=== PATIENT | male | born 1980 | race Caucasian/White ===

== ENCOUNTER 2020-02-14 13:21 | Inpatient (IN) | payer OTHER ==
[~2020-02-14] VITALS: Ht 182.9 cm; Wt 94.9 kg
[~2020-02-14 13:21] MED LIST: CLARITIN10 MG PO; IBUPROFEN 600600 M1 PO; NORCO 5-325 TA1 EACH PO; PRILOSEC40 MG PO; VENTOLIN HFA 1818 GM INH
[2020-02-14 13:23] VITALS: BP 143/87
[2020-02-14 13:54] LABS: URINE BLOOD TRACE (Negative); URINE CLARITY CLEAR; URINE COLOR YELLOW; URINE GLUCOSE-RANDOM* 2+ (Negative); URINE KETONES 3+ (Negative); URINE LEUKOCYTES-REFLEX NEGATIVE (Negative); URINE NITRITE-REFLEX NEGATIVE (Negative); URINE PROTEIN (DIPSTICK) 1+ (Negative); URINE SPECIFIC GRAVITY 1.025 (1.005-1.035); URINE UROBILINOGEN 0.2 E.U./dl (0.2-1.0)
[2020-02-14 13:57] LABS: ICTOTEST (BILI CONFIRMATORY) Negative (Negative); URINE BILIRUBIN NEGATIVE (Negative)
[2020-02-14 14:14] LABS: MUCUS >6 Heavy strn/LPF (None Seen); SQUAMOUS 0-3 Few /LPF (0-3)
[2020-02-14 14:15] LABS: BACTERIA-REFLEX None Seen /HPF (None Seen); CASTS None Seen /LPF (None Seen); CRYSTALS None Seen /LPF (None Seen); URINE RBC 0-2 Rare /HPF (0-2); URINE WBC-REFLEX 0-5 Rare /HPF (0-5)
[2020-02-14 14:16] LABS: HEMATOCRIT 43.2 % (42.0-52.0); HEMOGLOBIN 15.3 gm/dL (14.0-18.0); MCH 32.7 pg (26.0-34.0); MCHC 35.3 g/dL (28.0-37.0); MCV 92.5 fL (80.0-100.0); PLATELET COUNT 254 thou/uL (150-400); RBC 4.67 mil/uL (4.50-6.00); RDW 13.6 % (10.5-14.5); WBC 20.3 thou/uL (4.0-11.0)
[2020-02-14 14:26] LABS: POTASSIUM 4.1 mmol/L (3.5-5.1)
[2020-02-14 14:47] LABS: ABSOLUTE NEUTROPHILS 16.8 thou/uL (1.4-8.2)
[2020-02-14 14:48] LABS: PLATELET ESTIMATE NORMAL
[2020-02-14 15:25] LABS: CALCIUM 9.7 mg/dL (8.5-10.1); CREATININE 0.8 mg/dL (0.7-1.3); TOTAL BILIRUBIN 1.2 mg/dL (<0.1-1.0); TOTAL PROTEIN 7.2 g/dL (6.4-8.2)
[2020-02-14 15:26] LABS: ALBUMIN 4.2 g/dL (3.4-5.0)
[2020-02-14 16:57] VITALS: BP 123/77
[2020-02-14 17:09] VITALS: BP 114/72
[2020-02-14 18:25] VITALS: BP 137/94
--- NOTE | 2020-02-14 18:49 | NUR ---
39 YO MALE ADMITTED TO 207 BY CART FROM ED C/O RLQ PAIN. A&OX4. AMBULATES KOBI AND IS STEADY ON HIS FEET. IV INTACT IN L AC INFUSING NS@100 AND LOADING DOSE OF PROTONIX. MAY HAVE ICE CHIPS THOUGH IS NPO AT MN. CALL LIGHT W/I REACH.
[2020-02-14 20:08] VITALS: BP 120/86
[2020-02-15] VITALS (7 sets, daily range): BP systolic 119–144; BP diastolic 77–899
[2020-02-15 03:07] LABS: GLYCOHEMOGLOBIN (HGB A1C) 9.4 % (4.8-5.6)
--- NOTE | 2020-02-15 03:49 | NUR ---
ASSESSMENT DOCUMENTED.PT BEEN RESTING IN NO ACUTE DISTRESS.A/OX4.VSS.C/O PAIN TO RLQ THAT IS CONTROLLED WITH PAIN MEDS PER ORDER.IVF INFUSING.ON PROTONIX DRIP.C/O NAUSEA THAT RESOLVES W/O MEDS.NPO W/OPTION OF ICECHIPS,TOLERATED.ON ANTIBIOTICS,TOLERATED.SINUS TACHY ON MONITOR.UP AD MAGDALENE TO BR.PT DENIES ANY NEEDS AT THIS TIME.WILL CONT TO MONITOR PER POC.
[2020-02-15 05:54] LABS: HEMATOCRIT 36.8 % (42.0-52.0); MCH 32.2 pg (26.0-34.0); MCHC 34.4 g/dL (28.0-37.0); MCV 93.6 fL (80.0-100.0); PLATELET COUNT 188 thou/uL (150-400); RBC 3.93 mil/uL (4.50-6.00); RDW 13.5 % (10.5-14.5); WBC 18.9 thou/uL (4.0-11.0)
[2020-02-15 05:56] LABS: HEMOGLOBIN 12.7 gm/dL (14.0-18.0)
[2020-02-15 06:12] LABS: CREATININE 0.8 mg/dL (0.7-1.3); POTASSIUM 3.8 mmol/L (3.5-5.1)
[2020-02-15 11:42] LABS: ABSOLUTE NEUTROPHILS 17.2 thou/uL (1.4-8.2); ANISOCYTOSIS SLIGHT
--- NOTE | 2020-02-15 14:00 | NUR ---
Assumed pt care at 7am.Pt in and out of bed to bathroom and radiology dept. 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 tach
--- NOTE | 2020-02-15 16:11 | NUR ---
Patient admits with abd pain, sp with patient via phone. Patient cont to work and employment aware of hospital stay and he has adequate time off work. Patient with no PCP encouraged to seek PCP prior to dc. Patient does not live alone, independent with all adls aircraft captain. Discussed ETOH use and consumption. Does not feel problem with ETOH and not receptive to resources at this time. Casemgt cont to follow for dc planning.
[2020-02-15 16:19] LABS: FOLIC ACID 3.1 ng/mL (8.6-58.9)
[2020-02-15 20:27] LABS: URINE BILIRUBIN NEGATIVE (Negative); URINE BLOOD TRACE (Negative); URINE CLARITY CLEAR; URINE COLOR YELLOW; URINE GLUCOSE-RANDOM* NEGATIVE (Negative); URINE KETONES 2+ (Negative); URINE LEUKOCYTES NEGATIVE (Negative); URINE NITRITE NEGATIVE (Negative); URINE PROTEIN (DIPSTICK) 1+ (Negative); URINE UROBILINOGEN 0.2 E.U./dl (0.2-1.0)
[2020-02-15 20:35] LABS: AMP/METHAMP Negative (Negative); BARBITURATES Negative (Negative); BENZODIAZEPINES Negative (Negative); COCAINE Negative (Negative); METHADONE Negative (Negative); OPIATES POSITIVE (Negative); PCP Negative (Negative)
[2020-02-15 21:09] LABS: SQUAMOUS 4-10 Moderate /LPF (0-3)
[2020-02-15 21:10] LABS: BACTERIA None Seen /HPF (None Seen); CASTS None Seen /LPF (None Seen); CRYSTALS None Seen /LPF (None Seen); MUCUS 0-3 Light strn/LPF (None Seen); URINE RBC 0-2 Rare /HPF (0-2); URINE WBC 0-5 Rare /HPF (0-5)
--- NOTE | 2020-02-16 02:44 | NUR ---
PT ARRIVED FROM AT ABOUT 23OO HRS, HE IS VERY PLEASNT. BEEN UP AD MAGDALENE IN [place],. PT WAS DRINKING WATER OKAY PRIOR WITH NO C/O NAUSEA OR VOMITING. PT BEEN NPO SINCE MIDNIGHT WITH PLANS FOR EGD TOMORROW.AFEBRILE. IVF INFUSING. AFEBRILE. DENIES SOA OR COUGH. NO CONCERNS AT THIS TIME.CALLS APPROPRITELY.
[2020-02-16 03:44] VITALS: BP 150/93
[2020-02-16 05:56] LABS: BASOPHILS 0.5 % (0.0-2.0); HEMOGLOBIN 12.1 gm/dL (14.0-18.0); POLYS 78.9 % (36.0-66.0)
[2020-02-16 05:59] LABS: ABSOLUTE NEUTROPHILS 12.3 thou/uL (1.4-8.2); EOSINOPHILS 1.1 % (0.0-3.0); HEMATOCRIT 35.1 % (42.0-52.0); LYMPHOCYTES 11.9 % (24.0-44.0); MCH 32.4 pg (26.0-34.0); MCHC 34.5 g/dL (28.0-37.0); MCV 93.7 fL (80.0-100.0); MONOCYTES 7.6 % (1.0-8.0); PLATELET COUNT 183 thou/uL (150-400); RBC 3.74 mil/uL (4.50-6.00); RDW 13.5 % (10.5-14.5); WBC 15.6 thou/uL (4.0-11.0)
[2020-02-16 06:17] LABS: ALBUMIN 2.8 g/dL (3.4-5.0); CALCIUM 8.4 mg/dL (8.5-10.1); CREATININE 0.7 mg/dL (0.7-1.3); MAGNESIUM 1.9 mg/dL (1.8-2.4); PHOSPHORUS 1.9 mg/dL (2.5-4.9); POTASSIUM 3.1 mmol/L (3.5-5.1); TOTAL BILIRUBIN 0.9 mg/dL (<0.1-1.0)
[2020-02-16 08:02] VITALS: BP 152/94
[2020-02-16 13:37] LABS: CHOLESTEROL 276 mg/dL (<200); HDL CHOLESTEROL 13 mg/dL (>40); TC:HDL 21.2 Ratio (Not establshd); TRIGLYCERIDE 790 mg/dL (<150); VLDL 158 mg/dL (<40)
--- NOTE | 2020-02-16 14:11 | P ---
[facility] [place] [address] PROCEDURE REPORT Name: BRYANGEN CECY Room #: 441-P ADM IN M.R.#: [id number] Admission: 02/14/20 Attend Phys: Geraldine Odonnell MD Discharge: Date of : 80 Report #: [id number] THIS REPORT FOR: cc: FAM - No family physician/PCP FAM - Family physician unknown Shon Varela MD ~ CC: Geraldine ROSE physician/PCP FAM unknown Nir Mishra DATE OF SERVICE: 02/16/2020 PROCEDURE PERFORMED: Upper endoscopy with biopsies. HISTORY OF PRESENT ILLNESS: The patient is a 39-year-old male with abdominal pain. CT scan of the abdomen and pelvis on admission showed possible duodenitis versus pancreatitis changes; however, his lipase has remained normal. No previous history of pancreatic abnormalities. He does consume alcohol on a moderate basis. Gallbladder and bile ducts were normal. Liver function tests are essentially normal. He does have a history of heartburn, takes omeprazole approximately 2 times per week at home. Denies any dysphagia. No nausea or vomiting currently. Diabetes is a new diagnosis on this admission as well. He was also admitted with fever and elevated white count. He has been on antibiotics. His white count has been trending down. He remains afebrile at this time. Plan is for EGD. DESCRIPTION OF PROCEDURE: The risks and benefits of the procedure were explained to the patient, those risks including but not limited to bleeding, perforation and the risk of sedation. He understood these risks and gave informed consent. Sedation was given using propofol per anesthesia. Next, using a standard Olympus upper endoscope, the scope was placed in the patient's mouth and advanced under direct vision through the esophagus, stomach and into the second portion of the duodenum. The larynx was normal in appearance. The upper and mid esophagus was normal. In the distal esophagus, severe grade D erosive esophagitis was noted. No evidence of bleeding. Upon entering the stomach, a medium-sized hiatal hernia was noted. Overall, the gastric mucosa was normal. Biopsies were obtained to rule out H. pylori. The pylorus was normal and patent. The duodenal bulb, first and second portion were all normal. No duodenitis or duodenal ulcers were noted. The scope was then withdrawn and the procedure terminated. The patient tolerated the procedure well. IMPRESSION: 1. Grade D erosive esophagitis. [address] [address] PROCEDURE REPORT Name: GEN ADAMS Room #: 441-P [facility] IN .R.#: [id number] Admission: 02/14/20 Attend Phys: Geraldine Odonnell MD Discharge: Date of : 80 Report #: [id number] 2. Hiatal hernia. 3. Otherwise, normal upper endoscopy. RECOMMENDATIONS: 1. Await biopsy results. 2. Recommend b.i.d. PPI therapy and liquid Carafate for the next 2 weeks, followed by daily PPI therapy indefinitely. 3. Repeat upper endoscopy in 8 weeks to rule out the possibility of Lemus's esophagus. 4. Etiology of abdominal pain is unclear, although the patient has grade D erosive esophagitis, changes on CT suggest the possibility of pancreatitis; however, his lipase remains normal. At this time, we will slowly advance diet. Constipation may be playing a role as well at this time as he is having low abdominal pain and has not had a bowel movement for several days. We will also start MiraLax at this time. We will also check a chest x-ray. Continue IV antibiotics at this time. Thank you for allowing me to participate in his care. <ELECTRONICALLY SIGNED> By: Shon Varela MD 02/16/20 1411 1006 [id number] Shon Varela MD /nt
[2020-02-16 16:54] VITALS: BP 136/86
--- NOTE | 2020-02-16 18:37 | NUR ---
Assumed pt care at 7am.Pt in bed anxiously waiting for egd scheduled for today.Assessment completed.vss.Received call from pacu and updates given. Pt left bed cart around 9am and returned at 1130 in stable condition.Per gi lab report,gastritis was found on pt esophagus.Pt resumed previous diet and new meds noted.Updates given to pt girl friend.Pt has been drinking and eating good,and voiding okay.Ivf dc'd.Will continue to monitor.
[2020-02-16 19:35] VITALS: BP 148/100
[2020-02-17 04:23] VITALS: BP 144/94
--- NOTE | 2020-02-17 05:48 | NUR ---
Assumed pt care at 1900. A/OX4. Up ad jean claude. C/o RLQ pain medecited per EMAR with relief reported. No N/V reported, drinking enough oral fluids IV fluids discontinued. K+ 3.1, replaced X1, awaiting recheck this morning. BP a little elevated, pt declines need for meds and stated he must have been startled when woken up to check it, will continue to monitor pt. Call light/personal items within reach.
[2020-02-17 06:11] LABS: CALCIUM 8.9 mg/dL (8.5-10.1); CREATININE 0.7 mg/dL (0.7-1.3); PHOSPHORUS 2.4 mg/dL (2.5-4.9); POTASSIUM 3.4 mmol/L (3.5-5.1)
[2020-02-17 07:20] VITALS: BP 143/91
--- NOTE | 2020-02-17 10:19 | HC ---
[facility] [place] [address] CONSULTATION Name: GEN ADAMS CECY Room #: 441-P ADM IN M.R.#: [id number] Admission: 02/14/20 Attend Phys: Geraldine Odonnell MD Discharge: Date of : 80 Report #: [id number] THIS REPORT FOR: cc: ROSE - No family physician/PCP FAM - Family physician unknown Wenceslao Clements MD ~ CC: Geraldine ROSE physician/PCP FAM unknown Nir Mishra DATE OF SERVICE: 02/16/2020 CONSULTING PHYSICIAN: Dr. Awad. REASON FOR CONSULTATION: Uncontrolled type 2 diabetes mellitus. HISTORY OF PRESENT ILLNESS: This is a 39-year-old male patient whose medical background is rather unremarkable. The patient presented to the ER on the day of admission with complaints of abdominal pain, discomfort, which prompted an admission for further evaluation and management. Again, the patient does not have any significant medical background and is not on chronic medications of any sort. He has never been diagnosed in the past to have type 2 diabetes mellitus and denies having experienced symptoms of polyuria, nocturia, excessive thirst or significant weight changes. Of note is that he does have a family history of type 2 diabetes mellitus involving his grandfather. The patient does not have routine physical exams. REVIEW OF SYSTEMS: CONSTITUTIONAL: Negative for fatigue, tiredness, fever, chills or body weight changes. HEENT: Negative for sore throat, sinus pain, ear drainage. PULMONARY: Negative for shortness of breath, cough or hemoptysis. CARDIAC: Negative for chest pain, palpitations, syncope or presyncope. GASTROINTESTINAL: Noted for abdominal discomfort, nausea, but no vomiting, no major changes in bowel movement frequency. NEUROLOGY: Negative for loss of consciousness, seizure activity, severe frequent headaches or peripheral numbness. PSYCHIATRIC: Negative for delusions or hallucinations. DERMATOLOGY: Negative for ulcerations, rash, discoloration or other major changes. Otherwise, review of systems noncontributory other than those mentioned in HPI. PAST MEDICAL HISTORY: None. [facility] [address] [place] [address] CONSULTATION Name: BRYANGEN Room #: 441-P [facility] IN M.R.#: [id number] Admission: 02/14/20 Attend Phys: Geraldine Odonnell MD Discharge: Date of : 80 Report #: [id number] OUTPATIENT MEDICATIONS: None. ALLERGIES: No known drug allergies. FAMILY HISTORY: Mainly noted for his grandfather having hypertension, type 2 diabetes mellitus and coronary artery disease. SOCIAL HISTORY: The patient is in a long-term relationship expecting his first child soon. Smokes half pack per day. Drinks 2-3 whiskey shots a few times a week. Denies use of illicit drugs. Works in a [employer]. PHYSICAL EXAMINATION: GENERAL: Pleasant male patient who is not in apparent distress, sitting upright in bed, seems fairly comfortable. VITAL SIGNS: Blood pressure is 152/94 mmHg, heart rate is 103 beats per minute, respirations 17 per minute, temperature 36.9 degrees. CONSTITUTIONAL: The patient is sitting upright, appears comfortable, not in apparent distress. HEENT: Anicteric sclerae. Intact extraocular motions. NECK: Supple, without JVD. No thyromegaly. CHEST: Noted for good air entry bilaterally without wheeze or crackles. HEART: Regular rate and rhythm without murmurs or gallops. ABDOMEN: Soft and lax with slight discomfort on deep palpation, especially over the right aspect of the abdomen, but without guarding. The patient has active bowel sounds. EXTREMITIES: Lower extremity exam is negative for ankle edema, skin breaks or ulcerations. Pedal pulses are appreciated. NEUROLOGIC: Awake, alert and oriented to time, place and person. The remainder of his examination is nonfocal. PSYCHIATRIC: Pleasant, interactive. Normal thought process. Normal mood and affect. LABORATORY DATA: Blood glucose on arrival was 227 and has since settled below 180 mg/dL. Sodium 135, potassium 3.1, chloride 99, CO2 of 23, anion gap 13, BUN 6, creatinine 0.7, glucose 143, AST 19, lipase 85, total bilirubin 0.9, calcium 8.4, phosphorus 1.9, magnesium 1.9, alkaline phosphatase 89, ALT 23, total protein 7.0, albumin 2.8, EGFR 126. Ammonia 26. Lactic acid 1.3. Free T4 0.9. White blood count 15.6, hemoglobin 12.1, hematocrit 35.1, platelets 183. TSH 1.094. Hemoglobin A1c 9.4. ASSESSMENT AND PLAN: 1. Type 2 diabetes mellitus. As noted above, the patient has not been diagnosed with diabetes mellitus in the past, but on presentation was documented as having individual blood glucose values as well as a hemoglobin A1c that are well within diabetic range. This constitutes a new diagnosis of type 2 diabetes mellitus. The patient was counseled at length about the pathogenesis of type 2 [facility] [address] [address] CONSULTATION Name: GEN ADAMS Room #: 441-P [facility] IN M.R.#: [id number] Admission: 02/14/20 Attend Phys: Geraldine Odonnell MD Discharge: Date of : 80 Report #: [id number] diabetes mellitus, its implications, and about the necessity of achieving and maintaining adequate glycemic control so as to avoid diabetic complications in the future. I counseled the patient extensively about the importance of effective lifestyle measures involving diet and exercise changes aiming towards weight loss and sustained glycemic control, which he seemed motivated to do. Given the patient's baseline hemoglobin A1c of 9.4%, he will be best suited for a fixed dose combination agent and specifically I will start him on Janumet XR 50-1000 mg p.o. b.i.d. Also, I advised that he initiates blood glucose monitoring at home at least a few times a week and that he follows up in 3 months to monitor his progress and adjust his therapy as needed. 1. Hypertension. The patient has had a few blood pressure values that are in the hypertensive range. I highlighted the importance of maintaining adequate blood pressure control in the setting of type 2 diabetes mellitus. In order to better assess the patient's therapeutic needs, I will order a urine microalbumin to creatinine ratio. 2. Hyperlipidemia in the setting of a new diagnosis of type 2 diabetes mellitus, it would be prudent to adequately control the patient's lipid parameters. I will check a lipid panel to better assess his therapeutic needs in this regards. I certainly appreciate this consultation by Dr. Awad. <ELECTRONICALLY SIGNED> By: Wenceslao Clements MD 02/17/20 1019 1312 [id number] Wenceslao Clements MD /nt
[2020-02-17 12:07] LABS: CREATININE (ALB/CR) 60.6 mg/dL (Not Estab.); MICROALBUMIN-RND URINE 16.8 ug/mL (Not Estab.)
--- NOTE | 2020-02-17 15:21 | NUR ---
PT HAD EGD YESTERDAY. PT ON MIRALAX AND HAD DIET ADVANCED. PT IS NEWLY DIAGNOSED DIABETIC. PT HAS INSURANCE AND SHOULD BE ABLE TO GET ANY NEEDED SUPPLIES AND MEDICATIONS UPON DC. NO NEEDS ANTICPATED UPON DC. CM ABLE TO FOLLOW SHOULD ANY NEEDS ARISE.
[2020-02-17 16:04] VITALS: BP 135/88
[2020-02-17 19:03] VITALS: BP 132/95
--- NOTE | 2020-02-17 19:14 | NUR ---
VSS-AFEBRILE. LUNGS CLEAR-ROOM AIR. DRAIN PRESENT RIGHT LOWER ABDOMEN. DRAINS BEIGE COLORED DRAINAGE WITH FOUL SMELL. TUBING FLUSHES EASILY. OOB MAGDALENE-STEADY ON FEET. CALLS APPROPRIATELY FOR ANY NEEDED ASSISTANCE.
[2020-02-18 05:00] VITALS: BP 149/104
--- NOTE | 2020-02-18 05:06 | NUR ---
Assumed pt care at 1900. A/OX4,up ad jean claude w/o problems. C/o RLQ pain,medicated per EMAR with relief reported. No N/V,reports BM yesterday. Pt looking forward to dc today. Calls approp for help. Will continue to monitor pt.
[2020-02-18 05:52] LABS: HEMATOCRIT 36.8 % (42.0-52.0); HEMOGLOBIN 12.8 gm/dL (14.0-18.0); MCH 32.5 pg (26.0-34.0); MCHC 34.8 g/dL (28.0-37.0); MCV 93.5 fL (80.0-100.0); RBC 3.94 mil/uL (4.50-6.00); RDW 13.6 % (10.5-14.5); WBC 8.4 thou/uL (4.0-11.0)
[2020-02-18 06:05] LABS: CREATININE 0.7 mg/dL (0.7-1.3); MAGNESIUM 2.1 mg/dL (1.8-2.4); PHOSPHORUS 3.3 mg/dL (2.5-4.9); POTASSIUM 3.3 mmol/L (3.5-5.1)
[2020-02-18 07:56] VITALS: BP 151/99
--- NOTE | 2020-02-18 11:18 | NUR ---
Assumed care of pt at 0700. Pt a&ox4. Denies pain. IV antibiotics infusing. Up ad jean claude. Pt will be discharging home.
[2020-02-18] MEDS ORDERED: PANTOPRAZOLE SO40 M1 PO (11:47)
[2020-02-18] MEDS ORDERED: PERCOCET 5-3251 EACH PO (11:47)
[2020-02-18] MEDS ORDERED: TRADJENTA5 MG PO (11:47)
[2020-02-18] MEDS ORDERED: FLAGYL500 M1 PO (11:47)
[2020-02-18] MEDS ORDERED: CARAFATE 11 GM/10 M1 PO (11:47)
[2020-02-18] MEDS ORDERED: FENOFIBRATE54 MG PO (11:47)
[2020-02-18] MEDS ORDERED: CEFUROXIME500 MG PO (11:47)
[2020-02-18 11:59] VITALS: BP 151/99
--- NOTE | 2020-02-18 14:07 | PATH ---
[facility] [address] [place] [address] PATHOLOGY RPT PROCEDURE Name: SASCHA ADAMS Room #: 441-P ADM IN M.R.#: [id number] Admission: 02/14/20 Date of : 80 Discharge: Report #: [id number] Path Case #: [id number] [facility] Accession Number: [id number] . 01 Material submitted: . stomach - GASTRIC BIOPSY TO RULE OUT H PYLORI . 01 Clinical history: . Abnormal CT scan rule out H. pylori . 02 Diagnosis: Stomach "gastric" endoscopic biopsy: - Gastric antral and oxyntic mucosa without significant pathologic alteration. - Negative for active inflammation, intestinal metaplasia, dysplasia and malignancy. - NEGATIVE for Helicobacter pylori. (MACIEJ:sabi; 02/17/2020) MBR 02/18/2020 0822 Local . 02 Electronically signed: . Gaby Guaman MD, Pathologist NPI- [id number] . 01 Gross description: . The specimen is received in formalin, labeled "Sascha Adams, gastric BX" and consists of 2 fragments of pink-ybarra tissue measuring between 0.2 x 0.2 cm and 0.7 x 0.3 cm which are entirely submitted in A1. (SDY; 02/16/2020) SYU/SYU 02/16/2020 1522 Local . 02 Microscopic: . Immunohistochemical stain result: . Helicobacter pylori - negative for organisms. . (MLK:sabi; 02/17/2020) . 02 Pathologist provided ICD-10: R93.3 . 02 CPT . 422118, [id number] Specimen Comment: A courtesy copy of this report has been sent to [phone] Specimen Comment: Report sent to Specimen Comment: A duplicate report has been generated due to demographic updates. [address] [address] PATHOLOGY RPT PROCEDURE Name: BRYANSASCHA Room #: 441-P ADM IN M.R.#: [id number] Admission: 02/14/20 Date of : 80 Discharge: Report #: [id number] Path Case #: [id number] Performed at: 01 [facility] [address] [id number] MD Asael Ceron MD Phone: [phone] Performed at: 02 [facility] [id number] MD Myles Mireles MD Phone: [phone]
== END 2020-02-18 14:54 | disposition home or self-care (01) | DRG 380 ==
LOC: ER 13:21 → EROBS 16:35 → 2N 16:35 → 4S 02-15 23:04
PROVIDERS: Internal Medicine; Physician Assistant; ADMIT Hospitalist
PROC: 0DB68ZX Excision of Stomach, Via Natural or Artificial Opening Endoscopic, Diagnostic (ICD-10-PCS; principal; 2020-02-16)
DX: K22.10 Ulcer of esophagus without bleeding (principal); R65.11 Systemic inflammatory response syndrome (SIRS) of non-infectious origin with acute organ dysfunction; K85.90 Acute pancreatitis without necrosis or infection, unspecified; E87.1 Hypo-osmolality and hyponatremia; E11.65 Type 2 diabetes mellitus with hyperglycemia; K26.9 Duodenal ulcer, unspecified as acute or chronic, without hemorrhage or perforation; K29.80 Duodenitis without bleeding; D72.829 Elevated white blood cell count, unspecified; K44.9 Diaphragmatic hernia without obstruction or gangrene; J45.909 Unspecified asthma, uncomplicated; E86.0 Dehydration; I25.10 Atherosclerotic heart disease of native coronary artery without angina pectoris; E87.8 Other disorders of electrolyte and fluid balance, not elsewhere classified; F10.10 Alcohol abuse, uncomplicated; R00.0 Tachycardia, unspecified; K21.9 Gastro-esophageal reflux disease without esophagitis; E78.5 Hyperlipidemia, unspecified; F12.90 Cannabis use, unspecified, uncomplicated; E80.6 Other disorders of bilirubin metabolism; K76.0 Fatty (change of) liver, not elsewhere classified; Z82.49 Family history of ischemic heart disease and other diseases of the circulatory system; Z83.3 Family history of diabetes mellitus; Z79.1 Long term (current) use of non-steroidal anti-inflammatories (NSAID)
CPT/HCPCS: 10081; 10102; 62110; 62900